=== PATIENT | male | born 1940 | race Two or more races ===

== ENCOUNTER 2018-02-05 14:29 | Inpatient (IN) | payer OTHER ==
[~2018-02-05] VITALS: Ht 177.8 cm; Wt 61.2 kg
[2018-02-05] MEDS ORDERED: SODIUM CHLORIDE 0.9% 1,000 ML IV ONE (14:54)
[2018-02-05] MEDS ORDERED: ACETAMINOPHEN 325MG TABLET PO ONE (15:00)
[2018-02-05 16:20] LABS: BASOPHILS % 0.2 % (0.0-2.0); EOSINOPHILS % 1.5 % (0.0-5.0); HEMATOCRIT. 42.2 % (42.0-52.0); HEMOGLOBIN. 14.2 g/dL (14.0-18.0); LYMPHOCYTES % 20.5 % (20.0-50.0); MEAN CORPUSCULAR HEMOGLOBIN 31.7 pg (28.0-32.0); MEAN CORPUSCULAR VOLUME 94.1 fL (80.0-94.0); MEAN PLATELET VOLUME 9.3 fl (7.4-10.4); MONOCYTES % 8.5 % (2.0-8.0); NEUTROPHILS % 69.3 % (40.0-76.0); PLATELET 172 x1000/uL (130-400); RED BLOOD CELL COUNT 4.49 mill/uL (4.7-6.1); RED CELL DISTRIBUTION WIDTH 12.9 % (11.6-14.6)
[2018-02-05 16:24] LABS: INR 1.1; PARTIAL THROMBOPLASTIN TIME 27.1 sec (23.4-31.0); PROTHROMBIN TIME 10.7 sec (9.1-11.1)
[2018-02-05 16:26] LABS: CHLORIDE 103 mEq/L (98-107)
[2018-02-05] MEDS ORDERED: CLONIDINE 0.1MG TABLET PO NR (19:33)
[2018-02-05] MEDS ORDERED: CLONIDINE 0.1MG TABLET PO PRN (19:45)
[2018-02-05 22:56] LABS: CLARITY URINE CLEAR (CLEAR); COLOR URINE YELLOW (YELLOW); KETONES URINE 1+ (NEGATIVE); LEUKOCYTE ESTERASE URINE NEGATIVE (NEGATIVE); NITRITE URINE NEGATIVE (NEGATIVE); OCCULT BLOOD URINE NEGATIVE (NEGATIVE); PH URINE 6.5 (4.5-8.0); PROTEIN URINE NEGATIVE (NEGATIVE); SPECIFIC GRAVITY URINE 1.012 (1.005-1.030)
[2018-02-05] MEDS ORDERED: DEXTROSE 50% WATER 50ML SYRINGE IV PRN (23:00)
[2018-02-06] MEDS ORDERED: ACETAMINOPHEN 325MG TABLET PO PRN (00:15)
[2018-02-06] MEDS ORDERED: HYDROCODONE/ACETAMINOPHEN 5/325MG TABLET PO PRN (00:15)
[2018-02-06] MEDS: INSULIN LISPRO (MEDIUM DOSE) 100 UNITS/ML SUBCUT SCH ×3 (00:31→21:30)
[2018-02-06 05:46] LABS: LDL CHOLESTEROL 77 mg/dL (5-100)
[2018-02-06 05:48] LABS: CREATINE KINASE 39 IU/L (39-308); T4 FREE 1.28 ng/dL (0.76-1.46)
[2018-02-06 05:49] LABS: CREATINE KINASE MB FRACTION < 1.0 ng/mL (0.5-3.6)
[2018-02-06 05:56] LABS: HDL CHOLESTEROL 36 mg/dL (40-59)
[2018-02-06] MEDS: ASPIRIN 81MG EC TABLET PO SCH (12:21)
[2018-02-06] MEDS: ENOXAPARIN 40MG/0.4ML SYR SUBCUT SCH (12:25)
[2018-02-06 15:32] LABS: CREATINE KINASE 32 IU/L (39-308)
[2018-02-06 15:33] LABS: CREATINE KINASE MB FRACTION < 1.0 ng/mL (0.5-3.6)
[2018-02-06 21:00] VITALS: BP 168/84
[2018-02-06] MEDS: BLOOD SUGAR DIAGNOSTIC STRIP TEST SCH (21:29)
[2018-02-06 21:49] VITALS: BP 168/84
[2018-02-06] MEDS ORDERED: TRAMADOL 50MG TABLET PO PRN (22:45)
[2018-02-07] VITALS: BP 160/86
[2018-02-07] MEDS ORDERED: FINA5TAB11 MT (01:36)
[2018-02-07] MEDS ORDERED: METF-416 MT (01:36)
[2018-02-07] MEDS ORDERED: DIGO125T82 MT (01:36)
[2018-02-07] MEDS ORDERED: ATOR10TA69 MT (01:36)
[2018-02-07] MEDS ORDERED: VITA1CAP MT (01:36)
[2018-02-07] MEDS ORDERED: APIX5TAB MT (01:36)
[2018-02-07] MEDS ORDERED: METO25TA6 MT (01:40)
[2018-02-07] MEDS ORDERED: DULO30CA51 MT (01:40)
[2018-02-07 04:00] VITALS: BP 137/69
[2018-02-07] MEDS: BLOOD SUGAR DIAGNOSTIC STRIP TEST SCH ×4 (06:55→21:12)
[2018-02-07] MEDS: INSULIN LISPRO (MEDIUM DOSE) 100 UNITS/ML SUBCUT SCH ×4 (07:50→21:12)
[2018-02-07 08:00] VITALS: BP 113/72
[2018-02-07] MEDS: ASPIRIN 81MG EC TABLET PO SCH (09:00)
[2018-02-07] MEDS: ENOXAPARIN 40MG/0.4ML SYR SUBCUT SCH (09:12)
[2018-02-07 12:00] VITALS: BP 128/50
[2018-02-07 16:00] VITALS: BP 103/57
[2018-02-07 16:53] LABS: HEMATOCRIT 33.5 % (42.0-52.0); HEMOGLOBIN 11.6 g/dL (14.0-18.0); MEAN CORPUSCULAR HEMOGLOBIN 32.1 pg (28.0-32.0); MEAN CORPUSCULAR VOLUME 92.3 fL (80.0-94.0); PLATELET 167 x1000/uL (130-400); RED BLOOD CELL COUNT 3.63 mill/uL (4.7-6.1)
[2018-02-07] MEDS ORDERED: SODIUM CHLORIDE 0.45% 1,000 ML IV SCH (17:00)
[2018-02-07] MEDS: ATORVASTATIN CALCIUM 10MG TABLET PO SCH (17:29)
[2018-02-07 20:43] VITALS: BP 115/62
[2018-02-07] MEDS: METOPROLOL TARTRATE 25MG TABLET PO SCH (21:10)
[2018-02-08 00:50] VITALS: BP 129/76
[2018-02-08 04:00] VITALS: BP 137/59
[2018-02-08] MEDS: BLOOD SUGAR DIAGNOSTIC STRIP TEST SCH ×4 (06:21→21:31)
[2018-02-08] MEDS: INSULIN LISPRO (MEDIUM DOSE) 100 UNITS/ML SUBCUT SCH ×4 (06:26→21:00)
[2018-02-08 06:33] LABS: HEMATOCRIT 34.7 % (42.0-52.0); HEMOGLOBIN 12.2 g/dL (14.0-18.0); MEAN CORPUSCULAR HEMOGLOBIN 32.7 pg (28.0-32.0); MEAN CORPUSCULAR VOLUME 92.8 fL (80.0-94.0); PLATELET 168 x1000/uL (130-400); RED BLOOD CELL COUNT 3.74 mill/uL (4.7-6.1); RED CELL DISTRIBUTION WIDTH 12.9 % (11.6-14.6)
[2018-02-08 06:57] LABS: DIGOXIN 0.4 ng/mL (0.9-2.0)
[2018-02-08 08:15] VITALS: BP 192/102
[2018-02-08] MEDS: ASPIRIN 81MG EC TABLET PO SCH (08:54)
[2018-02-08] MEDS: ENOXAPARIN 40MG/0.4ML SYR SUBCUT SCH (08:54)
[2018-02-08] MEDS: ATORVASTATIN CALCIUM 10MG TABLET PO SCH (08:54)
[2018-02-08] MEDS: METOPROLOL TARTRATE 25MG TABLET PO SCH ×2 (08:56→21:56)
[2018-02-08 12:00] VITALS: BP 153/75
[2018-02-08] MEDS: DIGOXIN 125MCG TABLET PO SCH (12:15)
[2018-02-08] MEDS ORDERED: IPRATROPIUM/ALBUTEROL 0.5-3(2.5)MG/3ML NEB HHN PRN (16:15)
[2018-02-08 16:33] VITALS: BP 110/56
[2018-02-08 21:44] VITALS: BP 119/57
[2018-02-09] VITALS (7 sets, daily range): BP systolic 115–156; BP diastolic 56–80
[2018-02-09] MEDS: BLOOD SUGAR DIAGNOSTIC STRIP TEST SCH ×3 (06:32→17:13)
[2018-02-09 06:49] LABS: HEMATOCRIT 34.3 % (42.0-52.0); HEMOGLOBIN 11.8 g/dL (14.0-18.0); MEAN CORPUSCULAR HEMOGLOBIN 32.1 pg (28.0-32.0); MEAN CORPUSCULAR VOLUME 93.1 fL (80.0-94.0); PLATELET 174 x1000/uL (130-400); RED BLOOD CELL COUNT 3.69 mill/uL (4.7-6.1); RED CELL DISTRIBUTION WIDTH 12.7 % (11.6-14.6)
[2018-02-09] MEDS: INSULIN LISPRO (MEDIUM DOSE) 100 UNITS/ML SUBCUT SCH ×3 (09:00→17:46)
[2018-02-09] MEDS: ATORVASTATIN CALCIUM 10MG TABLET PO SCH (09:01)
[2018-02-09] MEDS: ASPIRIN 81MG EC TABLET PO SCH (09:01)
[2018-02-09] MEDS: DIGOXIN 125MCG TABLET PO SCH (09:01)
[2018-02-09] MEDS: ENOXAPARIN 40MG/0.4ML SYR SUBCUT SCH (09:01)
[2018-02-09] MEDS: METOPROLOL TARTRATE 25MG TABLET PO SCH (09:02)
[2018-02-09] MEDS ORDERED: INSULIN LISPRO 100 UNITS/ML SUBCUT NR (13:00)
== END 2018-02-10 00:14 | DRG 74 ==
LOC: ER 14:58 → EDBEDREQ 17:44 → ENRESERV 02-06 19:43 → 6WST 02-06 21:06 → UNDODISIN 02-09 19:35
PROVIDERS: ADMIT Internal Medicine; ATTEND Internal Medicine
DX: G90.8 Other disorders of autonomic nervous system (principal); M48.56XA Collapsed vertebra, not elsewhere classified, lumbar region, initial encounter for fracture; R26.9 Unspecified abnormalities of gait and mobility; R62.7 Adult failure to thrive; D64.9 Anemia, unspecified; E11.22 Type 2 diabetes mellitus with diabetic chronic kidney disease; E11.65 Type 2 diabetes mellitus with hyperglycemia; E78.5 Hyperlipidemia, unspecified; E86.0 Dehydration; W18.39XA Other fall on same level, initial encounter; F03.90 Unspecified dementia, unspecified severity, without behavioral disturbance, psychotic disturbance, mood disturbance, and anxiety; I12.9 Hypertensive chronic kidney disease with stage 1 through stage 4 chronic kidney disease, or unspecified chronic kidney disease; I48.0 Paroxysmal atrial fibrillation; N18.9 Chronic kidney disease, unspecified; N40.0 Benign prostatic hyperplasia without lower urinary tract symptoms; Z96.643 Presence of artificial hip joint, bilateral; Z86.73 Personal history of transient ischemic attack (TIA), and cerebral infarction without residual deficits; Z88.5 Allergy status to narcotic agent; Y93.89 Activity, other specified; Y92.89 Other specified places as the place of occurrence of the external cause; Y99.8 Other external cause status
CPT/HCPCS: 36415; 71045; 72131; 72148; 73502; 73552; 73600; 76770; 80048; 80061; 80162; 82550; 82553; 82962; 83036; 83880; 84153; 84439; 84443; 84484; 85027; 86850; 86900; 93005; 93306; 93880; 93970; 96360; 96361; 96372; 97116; 97162; 97530; 97535; 97760; 99284; 99285; J1650; J1815; J7030; G0103